=== PATIENT | male | born 1940 | race Caucasian/White ===

== ENCOUNTER 2022-01-27 10:52 | Emergency (ER) | payer MEDICARE, OTHER ==
[~2022-01-27] VITALS: Ht 172.7 cm; Wt 2.5 kg
--- NOTE | 2022-01-27 10:59 | NUR ---
REZA CEDENO C/O UPPER LIP SWELLING STARTED THIS MORNING."I JUST ATE BREAKFAST AND THIS HAPPENED". THE PATIENT IN ROOM AIR AND DENIES SOB. RESPIRATION REGULAR AND UNLABORED. ATTACHED TO THE MONITOR. WILL CONTINUE TO MONITOR THE PATIENT.
--- NOTE | 2022-01-27 11:00 | NUR ---
DR BARRON AT THE BEDSIDE
[2022-01-27] MEDS ORDERED: TAMS-12 PO (11:07)
[2022-01-27] MEDS ORDERED: MAGN400O6 PO (11:07)
[2022-01-27] MEDS ORDERED: FINA5TAB11 PO (11:07)
[2022-01-27] MEDS ORDERED: CARB1TAB21 PO (11:07)
[2022-01-27] MEDS ORDERED: BISA10SU11 RC (11:07)
[2022-01-27] MEDS ORDERED: ASPI-1420 PO (11:07)
[2022-01-27] MEDS ORDERED: ATOR40TA PO (11:07)
[2022-01-27] MEDS ORDERED: ALBU8.5H8 IH (11:07)
[2022-01-27] MEDS ORDERED: ACET-868 PO (11:07)
[2022-01-27] MEDS ORDERED: DOCU100T28 PO (11:07)
[2022-01-27] MEDS ORDERED: METO25TA4 PO (11:07)
[2022-01-27] MEDS ORDERED: DIVA125T32 PO (11:07)
[2022-01-27] MEDS ORDERED: NA P133E RC (11:07)
[2022-01-27] MEDS ORDERED: OXYB5TAB16 PO (11:07)
[2022-01-27] MEDS ORDERED: AMLO-212 PO (11:08)
[2022-01-27] MEDS ORDERED: diphenhydrAMINE HCL 50 MG/ML VIAL ONE (11:18)
[2022-01-27] MEDS ORDERED: methylPREDNISolone SOD SUCC 125 MG/2ML VIAL ONE (11:18)
[2022-01-27] MEDS ORDERED: EPINEPHRINE (1:1000) 1 MG/ML AMPUL ONE (11:18)
[2022-01-27] MEDS ORDERED: FAMOTIDINE/PF INJ 20 MG/2 ML VIAL IV ONE ×2 (11:19→11:30)
--- NOTE | 2022-01-27 11:24 | NUR ---
X RAY AT BEDSIDE
[2022-01-27] MEDS ORDERED: EPINEPHRINE (1:1000) MDV 30 MG/30ML VIAL SUBCUT ONE (11:30)
[2022-01-27] MEDS ORDERED: methylPREDNISolone SOD SUCC 125 MG/2ML VIAL IV ONE (11:30)
[2022-01-27] MEDS ORDERED: diphenhydrAMINE HCL 50 MG/ML VIAL IV ONE (11:30)
[2022-01-27 11:50] LABS: BASOPHILS # (AUTO) 0.1 K/uL (0.0-0.2); BASOPHILS % (AUTO) 0.8 % (0.0-2.0); EOSINOPHILS % (AUTO) 2.5 % (0.0-6.0); HEMATOCRIT 43 % (39-51); HEMOGLOBIN 14.1 g/dL (13.5-17.5); LYMPHOCYTES # (AUTO) 1.5 K/uL (0.8-4.8); LYMPHOCYTES % (AUTO) 17.2 % (20.0-44.0); MEAN CORPUSCULAR HGB CONC 33 g/dl (31.0-36.0); MEAN CORPUSCULAR VOLUME 91 fL (80-96); MONOCYTES # (AUTO) 0.6 K/uL (0.1-1.30); MONOCYTES % (AUTO) 7.6 % (2.0-12.0); NEUTROPHILS # (AUTO) 6.1 K/uL (1.8-8.9); NEUTROPHILS % (AUTO) 71.9 % (43.0-81.0); PLATELET COUNT (AUTO) 184 K/uL (150-450); RED BLOOD CELL COUNT(AUTO) 4.67 MIL/uL (4.5-6.0); WHITE BLOOD COUNT (AUTO) 8.5 K/uL (4.3-11.0)
[2022-01-27 12:00] LABS: CALCIUM, SERUM 8.8 mg/dL (8.5-10.1); CREATININE 1.3 mg/dL (0.6-1.3); POTASSIUM 3.9 mmol/L (3.5-5.1)
--- NOTE | 2022-01-27 12:34 | NUR ---
DR. MOSQUERA SPEAKING WITH DR. BARRNO.
[2022-01-27] MEDS ORDERED: FAMO-131 PO (13:01)
[2022-01-27] MEDS ORDERED: PRED20TA PO (13:01)
[2022-01-27] MEDS ORDERED: DIPH25CA83 PO (13:01)
--- NOTE | 2022-01-27 13:12 | NUR ---
[facility] CALLED FOR TRANSPORT ETA IS 60 MINS.
--- NOTE | 2022-01-27 14:34 | NUR ---
PICKED UP BY TRANSPORT IN STABLE CONDITION
--- NOTE | 2022-01-27 14:34 | NUR ---
REPORT GIVEN TO MAGNUS FOR RETA
[2022-01-27 14:38] VITALS: BP 141/75
== END 2022-01-27 14:38 | disposition home or self-care (01) ==
LOC: ER 10:57
DX: T78.3XXA Angioneurotic edema, initial encounter (principal); I10 Essential (primary) hypertension; E78.5 Hyperlipidemia, unspecified; J44.9 Chronic obstructive pulmonary disease, unspecified; N40.0 Benign prostatic hyperplasia without lower urinary tract symptoms; Z86.69 Personal history of other diseases of the nervous system and sense organs; Z87.438 Personal history of other diseases of male genital organs; Z88.0 Allergy status to penicillin; Z79.1 Long term (current) use of non-steroidal anti-inflammatories (NSAID); Z79.51 Long term (current) use of inhaled steroids; Z79.82 Long term (current) use of aspirin; Z79.899 Other long term (current) drug therapy
CPT/HCPCS: 36415; 71045; 80048; 85025; 93005; 96372; 96374; 96375; 99285; J0171; J1200; J2930; J3490

== ENCOUNTER 2022-12-31 07:34 | Inpatient (IN) | payer MEDICARE, OTHER ==
[~2022-12-31] VITALS: Ht 172.7 cm; Wt 55.8 kg
[~2022-12-31 07:34] MED LIST: ACET-868 PO; ALBU8.5H8 IH; AMLO-212 PO; ASPI-1420 PO; ATOR40TA PO; BISA10SU11 RC; CARB1TAB21 PO; DIPH25CA83 PO; DIVA125T32 PO; DOCU100T28 PO; FAMO-131 PO; FINA5TAB11 PO; MAGN400O6 PO; METO25TA4 PO; NA P133E RC; OXYB5TAB16 PO; PRED20TA PO; TAMS-12 PO
--- NOTE | 2022-12-31 07:40 | NUR ---
RECEVED PT 82 YRS MALE came by soheila from [facility] S/P FALL DOWN THIS MORNING AND HITYE HIS LT SIDE RT ARM AND RT LEG AND HIP AWAKE and alert respiration spont and easy
--- NOTE | 2022-12-31 07:45 | NUR ---
TO CT [facility]
--- NOTE | 2022-12-31 08:05 | NUR ---
BLOOD DROW BY LAB TACh at bed side
[2022-12-31 08:58] LABS: ALANINE AMINOTRANSFERASE 19 U/L (12-78); ALBUMIN 3.1 g/dL (3.4-5.0); ALKALINE PHOSPHATASE 74 U/L (46-116); ASPARTATE AMINOTRANSFERASE 19 U/L (15-37); BILIRUBIN,DIRECT 0.2 mg/dL (0.0-0.2); BILIRUBIN,TOTAL 0.5 mg/dL (0.2-1.0); CALCIUM, SERUM 8.8 mg/dL (8.5-10.1); CARBON DIOXIDE 26 mmol/L (21-32); CHLORIDE 105 mmol/L (98-107); CREATININE 1.5 mg/dL (0.6-1.3); GLUCOSE 139 mg/dL (74-106); POTASSIUM 3.9 mmol/L (3.5-5.1); SODIUM SERUM 139 mmol/L (136-145); TOTAL PROTEIN, SERUM 6.7 g/dL (6.4-8.2); UREA NITROGEN, BLOOD 16 mg/dL (7-18)
--- NOTE | 2022-12-31 09:08 | NUR ---
resting and asleepy o2 sat 88-90% place pt on o2 2l/nc
[2022-12-31 09:53] LABS: BASOPHILS % (AUTO) 0.1 % (0.0-2.0); EOSINOPHILS % (AUTO) 0.3 % (0.0-6.0); HEMATOCRIT 42 % (39-51); HEMOGLOBIN 13.2 g/dL (13.5-17.5); LYMPHOCYTES # (AUTO) 0.8 K/uL (0.8-4.8); LYMPHOCYTES % (AUTO) 6.2 % (20.0-44.0); MEAN CORPUSCULAR HGB CONC 32 g/dl (31.0-36.0); MEAN CORPUSCULAR VOLUME 94 fL (80-96); MONOCYTES # (AUTO) 0.8 K/uL (0.1-1.30); MONOCYTES % (AUTO) 6.4 % (2.0-12.0); NEUTROPHILS # (AUTO) 11.4 K/uL (1.8-8.9); PLATELET COUNT (AUTO) 180 K/uL (150-450); RED BLOOD CELL COUNT(AUTO) 4.44 MIL/uL (4.5-6.0); WHITE BLOOD COUNT (AUTO) 13.1 K/uL (4.3-11.0)
[2022-12-31] MEDS ORDERED: ACETAMINOPHEN ES 500 MG TABLET ONE (10:14)
--- NOTE | 2022-12-31 10:17 | NUR ---
DEPARTMENT STORE MANAGER AT BEDSIDE FOR XRAY
[2022-12-31] MEDS ORDERED: ACETAMINOPHEN ES 500 MG TABLET PO ONE (10:30)
[2022-12-31] MEDS ORDERED: IV NS 0.9% 1,000 ML BAG IV ONE (10:30)
--- NOTE | 2022-12-31 10:44 | NUR ---
COVID SWAB COLLECTED AND SENT TO LAB
[2022-12-31] MEDS ORDERED: LEVO50TA8 PO (10:45)
[2022-12-31] MEDS ORDERED: ASCO500C17 PO (10:45)
--- NOTE | 2022-12-31 11:17 | NUR ---
MOVE SHEET SUBMITTED.
[2022-12-31] MEDS ORDERED: ONDANSETRON HCL/PF 4 MG/2 ML VIAL IVP ONE (11:30)
[2022-12-31] MEDS ORDERED: MORPHINE SULFATE INJ 2 MG/ML DISP.SYRIN IV ONE (11:30)
--- NOTE | 2022-12-31 11:44 | NUR ---
CALLED [facility] [phone] DR. OROZCO PAGED.
[2022-12-31] MEDS ORDERED: ONDANSETRON HCL/PF 4 MG/2 ML VIAL ONE (12:18)
[2022-12-31] MEDS ORDERED: MORPHINE SULFATE INJ 4 MG/ML DISP.SYRIN ONE (12:18)
--- NOTE | 2022-12-31 12:32 | NUR ---
WATING FOR ROOM
--- NOTE | 2022-12-31 13:12 | NUR ---
GOT BED 304 ADMITTINED INFORMED.
--- NOTE | 2022-12-31 13:12 | NUR ---
ROOM ASSIGNED. 304.1 ADMITTING AWARE.
--- NOTE | 2022-12-31 13:14 | NUR ---
EPIC PAGED, AWAITING HOSPITALIST CALL BACK.
--- NOTE | 2022-12-31 13:43 | NUR ---
PT TAKEN TO RADIOLOGY
--- NOTE | 2022-12-31 13:58 | NUR ---
ROQUE CHAPPELL, WILL CALL BACK FOR REPORT
--- NOTE | 2022-12-31 14:30 | NUR ---
PT REPORT GIVEN TO ROQUE CHAPPELL
--- NOTE | 2022-12-31 16:04 | NUR ---
PT TRANSFERRED TO [facility]IA [facility]. WARM HANDOFF GIVEN TO RN ASSIGNED.
[2022-12-31] MEDS: MORPHINE SULFATE INJ 2 MG/ML DISP.SYRIN IV PRN ×2 (18:29→22:36)
[2022-12-31] MEDS ORDERED: BISACODYL SUPP (10 MG) 10 MG/SUPP.RECT SUPP.RECT RC PRN (19:00)
[2022-12-31] MEDS ORDERED: MAG HYDROX/AL HYDROX/SIMETH 30 ML UDC PO PRN (19:00)
[2022-12-31] MEDS ORDERED: Z GUARD REMEDY 4 OZ OINT TP PRN (19:00)
[2022-12-31] MEDS ORDERED: ONDANSETRON HCL/PF 4 MG/2 ML VIAL IVP PRN (19:00)
[2022-12-31] MEDS ORDERED: MAGNESIUM HYDROXIDE 30 ML UDC PO PRN (19:00)
[2022-12-31] MEDS ORDERED: ZOLPIDEM TARTRATE 5 MG TABLET PO PRN (19:00)
[2022-12-31] MEDS ORDERED: ACETAMINOPHEN 325 MG TABLET PO PRN ×2 (19:00)
[2022-12-31] MEDS: ALBUTEROL FS 2.5 MG/3 ML VIAL.NEB NEB SCH ×2 (19:30→21:06)
--- NOTE | 2022-12-31 19:30 | NUR ---
MS RN OPENING NOTE RECEIVED PATIENT IN BED; AWAKE, ALERT AND ORIENTED X 4. ON O2 INHALATION@ 2 LPM VIA NASAL CANNULA; TOLERATING WELL. BREATHING EVEN AND NONLABORED. ABLE TO MAKE NEEDS KNOWN. WITH IV ACCESS ON RIGHT FOREARM 18g; PATENT, INTACT AND SALINE LOCKED. SAFETY PRECAUTIONS IMPLEMENTED: CALL LIGHT AND TABLE WITHIN REACH, SIDE RAILS UP X 3, BED IN LOWEST LOCKED POSITION. WILL CONTINUE PLAN OF CARE.
--- NOTE | 2022-12-31 19:40 | NUR ---
FRUIT BAR MAKER NOTES RECEIVED PATIENT FROM ER VIA [facility] WITH C/O OF S/P GROUND FALL AND WITH DX RIGHT HIP FRACTURE , OTHER DX OF DEMENTIA , HTN , COPD AND BPH , ALERT AND ORIENTED X 4 AND ABLE TO MAKE NEEDS KNOWN , BODY ASSESSMENT DONE PER PROTOCOL AND PATIENT REFUSED TO DO THE WHOLE BODY CHECK AND KEPT DRY AND CLEAN , ABLE TO TAKE SOME PHOTOS AND PATIENT DOESN'T WANT TO CONTINUE , NO SOB OR DISTRESS NOTED , C/O OF PAIN AND DISCOMFORT ON THE RIGHT HIP LIKE 08/30 AND GIVEN WITH MORPHINE SO4 2MG IV AND WITH HELP , IV ACCESS ON THE RIGHT FOREARM G 18 AND SL , NWB ON RIGHT LOWER EXT, SKIN WITH MULTIPLE RASHES ON THE ABDOMEN AND SCRATCHES ON BOTH LOWER EXTREMITIES , WITH ORDER FOR CLEAR FOR SURGERY OF RIGHT HEMIARTHROPLASTY , NEEDS CONSENT AND ENDORSED TO NEXT SHIFT , ALL BELONGINGS WERE ACCOUNTED AND PATIENT WAS PUT IN A COMFORTABLE POSITION , V/S TAKEN AND RECORDED BP 152/75, TEMP 98.3, RR 18 , P 82 OS SAT 97% WITH 2 L, ENDORSED TO NEXT SHIFT
[2022-12-31 19:52] VITALS: BP 152/78
[2022-12-31 20:00] VITALS: BP 166/97
--- NOTE | 2022-12-31 20:30 | NUR ---
RN NOTE' BP RECHECKED - 152/85 MM HG.
[2022-12-31] MEDS: ENOXAPARIN SODIUM 30 MG/0.3 ML DISP.SYRIN SQ SCH (20:52)
[2022-12-31] MEDS: DIVALPROEX SODIUM 125 MG TABLET.DR PO SCH (20:53)
[2022-12-31] MEDS: ATORVASTATIN 40 MG TABLET PO SCH (21:34)
[2022-12-31] MEDS: TAMSULOSIN 0.4 MG CAP.SR.24H PO SCH (21:34)
[2022-12-31] MEDS: AMLODIPINE BESYLATE 5 MG TABLET PO SCH (21:40)
--- NOTE | 2022-12-31 22:36 | NUR ---
RN NOTE PATIENT COMPLAINED OF RIGHT HIP PAIN 8/10 PAIN SCALE. PRN MORPHINE INJ 2 MG GIVEN IVP ORDERED. KEPT COMFORTABLE IN BED. WILL CONTINUE TO MONITOR AND REASSESS PATIENT.
[2023-01-01] MEDS: ALBUTEROL FS 2.5 MG/3 ML VIAL.NEB NEB SCH ×4 (01:30→19:30)
[2023-01-01] MEDS: MORPHINE SULFATE INJ 2 MG/ML DISP.SYRIN IV PRN ×5 (02:14→23:25)
--- NOTE | 2023-01-01 02:14 | NUR ---
RN NOTE PATIENT COMPLAINED OF RIGHT HIP PAIN WITH PAIN SCALE OF 8/10. MORPHINE INJ 2 MG PRN GIVEN IVP ORDERED. KEPT COMFORTABLE IN BED. WILL CONTINUE TO MONITOR AND REASSESS PATIENT.
[2023-01-01 05:45] LABS: BASOPHILS % (AUTO) 0.4 % (0.0-2.0); EOSINOPHILS % (AUTO) 5.7 % (0.0-6.0); HEMATOCRIT 44 % (39-51); LYMPHOCYTES # (AUTO) 0.9 K/uL (0.8-4.8); LYMPHOCYTES % (AUTO) 9.1 % (20.0-44.0); MEAN CORPUSCULAR HGB CONC 32 g/dl (31.0-36.0); MEAN CORPUSCULAR VOLUME 94 fL (80-96); MONOCYTES # (AUTO) 0.8 K/uL (0.1-1.30); MONOCYTES % (AUTO) 7.6 % (2.0-12.0); NEUTROPHILS # (AUTO) 7.9 K/uL (1.8-8.9); NEUTROPHILS % (AUTO) 77.2 % (43.0-81.0); PLATELET COUNT (AUTO) 169 K/uL (150-450); RED BLOOD CELL COUNT(AUTO) 4.68 MIL/uL (4.5-6.0); WHITE BLOOD COUNT (AUTO) 10.2 K/uL (4.3-11.0)
[2023-01-01 06:00] LABS: CALCIUM, SERUM 8.6 mg/dL (8.5-10.1); CREATININE 1.3 mg/dL (0.6-1.3); MAGNESIUM 2.1 mg/dL (1.8-2.4); PHOSPHORUS 3.4 mg/dL (2.5-4.9); POTASSIUM 4.1 mmol/L (3.5-5.1)
--- NOTE | 2023-01-01 06:08 | NUR ---
RN NOTE CALLED SHARON TROTTER ([phone]) TO GET CONSENT FOR SURGERY. LEFT VOICEMAIL; STILL AWAITING FOR CALLBACK. ENDORSED TO TOAN NEVAREZ FOR FOLLOW UP.
--- NOTE | 2023-01-01 07:10 | NUR ---
MS RN CLOSING NOTE RECEIVED PATIENT IN BED; AWAKE, ALERT AND ORIENTED X 2. STILL ON O2 INHALATION@ 2 LPM VIA NASAL CANNULA; WELL TOLERATED. BREATHING EQUALLY AND UNLABORED. ALL DUE MEDS GIVEN ORDERED. WITH IV ACCESS ON RIGHT FOREARM 18g; PATENT, INTACT AND SALINE LOCKED. SAFETY PRECAUTIONS MAINTAINED: CALL LIGHT AND TABLE WITHIN REACH, SIDE RAILS UP X 3, BED IN LOWEST LOCKED POSITION. ENDORSED TO MORNING SHIFT FOR RETA.
--- NOTE | 2023-01-01 07:47 | NUR ---
RN OPENING NOTE RECEIVED PATIENT IN BED, AO X 2. ABLE TO RESPONDS ALL STIMULI. RESPIRATORY EVEN AND UNLABORED ON OXYGEN AT 2Ls VIA NC. IN NO ACUTE DISTRESS OBSERVED. SKIN IS WARM TO TOUCH, KEEP CLEAN/DRY. KEPT ELEVATED HOB FOR ASPIRATION PRECAUTION/ENSURE AIRWAY, ALSO LOWEST BED POSITIONED. BED ALARM IS ON AT ALL THE TIME FOR SAFETY. CALL LIGHT WITHIN REACH, WILL CONTINUE TO MONITOR.
[2023-01-01 08:00] VITALS: BP 162/96
[2023-01-01] MEDS: METOPROLOL SUCCINATE 25 MG TAB.SR.24H PO SCH ×2 (08:46→16:44)
[2023-01-01] MEDS: FINASTERIDE (5 MG) 5 MG TABLET PO SCH (08:46)
[2023-01-01] MEDS: DIVALPROEX SODIUM 125 MG TABLET.DR PO SCH ×2 (08:47→21:48)
[2023-01-01] MEDS: LEVOTHYROXINE SODIUM 50 MCG TABLET PO SCH (08:47)
[2023-01-01] MEDS ORDERED: ANESTHESIA TRAY IN PYXIS 1 EA TRAY MC ONE (13:16)
--- NOTE | 2023-01-01 13:49 | NUR ---
PATIENT REFUSED TX. AND SAID IS ALERT ON 2 L NC. SAT IN 90% Addendum: 01/01/23 at 1350 by HARLAN LANCASTER RT Amended: Links added.
[2023-01-01] MEDS: ENSURE ENLIVE 237 ML LIQUID (VANILLA) PO SCH ×2 (14:50→16:48)
[2023-01-01 16:00] VITALS: BP 145/79
--- NOTE | 2023-01-01 17:27 | NUR ---
RN CLOSING NOTE PATIENT RESTING IN BED. IN NO ACUTE DISTRESS OBSERVED. RESPIRATORY EVEN AND UNLABORED ON OXYGEN AT 2Ls VIA NC. IN NO RESPIRATORY DISTRESS OBSERVED. SKIN IS WARM TO TOUCH KEEP CLEAN/DRY. PATIENT UNDERSTANDING THE TOMORROW PROCEDURE AND SIGNED ON CONSENT FOR MISA-ARTHROPLASTY. KEPT ELEVATED HOB FOR ENSURE AIRWAY/ASPIRATION PRECAUTION, AND LOWEST BED POSITION. BED ALARM IS ON AT ALL THE TIME FOR SAFETY. CALL LIGHT WITHIN REACH, WILL ENDORSE UM SPECIALIST.
[2023-01-01] MEDS: ENOXAPARIN SODIUM 30 MG/0.3 ML DISP.SYRIN SQ SCH (19:30)
--- NOTE | 2023-01-01 19:30 | NUR ---
RN OPENING NOTE RECEIVED PATIENT IN BED; AWAKE, ALERT AND ORIENTED X 2. ON O2 INHALATION @ 2 LPM VIA NASAL CANNULA; TOLERATING WELL. BREATHING EVEN AND NONLABORED. WITH IV ACCESS ON RIGHT FOREARM 18g; INTACT, PATENT AND SALINE LOCKED. ABLE TO MAKE NEEDS KNOWN. SAFETY PRECAUTIONS IMPLEMENTED: CALL LIGHT AND TABLE WITHIN REACH, SIDE RAILS UP X 3, BED IN LOWEST LOCKED POSITION. WILL CONTINUE PLAN OF CARE.
--- NOTE | 2023-01-01 19:48 | NUR ---
PT REFUSED NEB TX. PT IS ALERT, SPO2 95% ON 2L NC. NO SOB OR RESP DISTRESS NOTED.
[2023-01-01 20:00] VITALS: BP 166/98
[2023-01-01] MEDS: TAMSULOSIN 0.4 MG CAP.SR.24H PO SCH (21:48)
[2023-01-01] MEDS: ATORVASTATIN 40 MG TABLET PO SCH (21:49)
[2023-01-01] MEDS: AMLODIPINE BESYLATE 5 MG TABLET PO SCH (21:52)
[2023-01-01 22:00] VITALS: BP 166/98
[2023-01-02] MEDS: ALBUTEROL FS 2.5 MG/3 ML VIAL.NEB NEB SCH ×4 (01:30→19:47)
[2023-01-02 06:11] LABS: BASOPHILS % (AUTO) 0.2 % (0.0-2.0); EOSINOPHILS % (AUTO) 4.3 % (0.0-6.0); HEMATOCRIT 43 % (39-51); HEMOGLOBIN 13.8 g/dL (13.5-17.5); LYMPHOCYTES # (AUTO) 0.9 K/uL (0.8-4.8); LYMPHOCYTES % (AUTO) 8.7 % (20.0-44.0); MEAN CORPUSCULAR HGB CONC 32 g/dl (31.0-36.0); MEAN CORPUSCULAR VOLUME 93 fL (80-96); MONOCYTES # (AUTO) 1.1 K/uL (0.1-1.30); MONOCYTES % (AUTO) 10.6 % (2.0-12.0); NEUTROPHILS # (AUTO) 8.3 K/uL (1.8-8.9); NEUTROPHILS % (AUTO) 76.2 % (43.0-81.0); PLATELET COUNT (AUTO) 167 K/uL (150-450); RED BLOOD CELL COUNT(AUTO) 4.59 MIL/uL (4.5-6.0); WHITE BLOOD COUNT (AUTO) 10.8 K/uL (4.3-11.0)
[2023-01-02 06:28] LABS: CALCIUM, SERUM 8.9 mg/dL (8.5-10.1); CREATININE 1.2 mg/dL (0.6-1.3); MAGNESIUM 2.2 mg/dL (1.8-2.4); PHOSPHORUS 3.1 mg/dL (2.5-4.9); POTASSIUM 4.4 mmol/L (3.5-5.1)
--- NOTE | 2023-01-02 06:55 | NUR ---
RN CLOSING NOTE PATIENT IN BED; AWAKE, A/O X 2. STILL ON O2 INHALATION @ 2 LPM VIA NASAL CANNULA; WELL TOLERATED. BREATHING EQUAL AND UNLABORED. WITH IV ACCESS ON RIGHT FA 18g; INTACT, PATENT AND SALINE LOCKED. ALL DUE MEDS GIVEN ORDERED. FOR RIGHT HEMIARTHROPLASTY TODAY @ 0900. SAFETY PRECAUTIONS MAINTAINED: CALL LIGHT AND TABLE WITHIN REACH, SIDE RAILS UP X 3, BED IN LOWEST LOCKED POSITION. ENDORSED TO INCOMING SHIFT FOR RETA.
--- NOTE | 2023-01-02 07:50 | NUR ---
RN OPENING NOTE RECEIVED PATIENT IN BED, A & O X 2. ABLE TO RESPOND TO ALL STIMULI. RESPIRATIONS ARE EVEN AND UNLABORED ON OXYGEN AT 3 LPM VIA NC. IN NO ACUTE DISTRESS OBSERVED. SKIN IS WARM TO TOUCH, KEEP CLEAN/DRY. KEPT ELEVATED HOB FOR ASPIRATION PRECAUTION/ENSURE AIRWAY, ALSO LOWEST BED POSITIONED. BED ALARM IS ON AT ALL THE TIME FOR SAFETY. CALL LIGHT WITHIN REACH, WILL CONTINUE TO MONITOR AND CARE FOR PATIENT PER HOSPITALIST AND SURGEON'S POC.
[2023-01-02 08:00] VITALS: BP 158/87
[2023-01-02] MEDS: DIVALPROEX SODIUM 125 MG TABLET.DR PO SCH ×2 (09:31→21:13)
[2023-01-02] MEDS: FINASTERIDE (5 MG) 5 MG TABLET PO SCH (09:31)
[2023-01-02] MEDS: LEVOTHYROXINE SODIUM 50 MCG TABLET PO SCH (09:31)
[2023-01-02] MEDS: METOPROLOL SUCCINATE 25 MG TAB.SR.24H PO SCH ×2 (09:31→19:15)
--- NOTE | 2023-01-02 10:15 | NUR ---
MS RN PATIENT DEPARTS [facility] FOR SURGERY NOTE Patient comfortable without any signs of distress, diapered, alert and oriented x 3 with some confusion and forgetfulness. POC BG = 149mg/dL. Patient has # 18 gauge PIV catheter to right forearm, patent, flushed, and saline locked. Patient had hypertension before receiving his daily anti-hypertensive medication. Patient maintained NPO status except to take morning scheduled medications with 30 mLs of water at 9:00 AM dose time. Report gibven on phone to receiving OR nurse. Patient on oxygen via nasal cannula at 3 LPM. Patient departed [facility] via his bed, accompanied by transporter OR staff, Tawnya at 10:15 AM. All consents were signed, witnessed, dated, and timed. OR checklist completed.
[2023-01-02] MEDS ORDERED: BUPIVACAINE 0.5 % PF 150 MG/30 ML VIAL ONE (10:16)
[2023-01-02] MEDS ORDERED: POLYMYXIN B SULFATE 500,000 UNITS ONE (10:16)
[2023-01-02] MEDS ORDERED: TRANEXAMIC ACID 1,000 MG/10 ML VIAL ONE (10:38)
[2023-01-02] MEDS ORDERED: CLINDAMYCIN IV RTU IN D5W 50 ML ONE (10:39)
[2023-01-02] MEDS ORDERED: HYDROMORPHONE INJ 2 MG/ML DISP.SYRIN ONE (10:41)
[2023-01-02] MEDS ORDERED: KETAMINE HCL (500MG/10ML) 50 MG/ML VIAL ONE (10:41)
[2023-01-02] MEDS ORDERED: MEPERIDINE25 MG SYR 25 MG/ML VIAL ONE (12:10)
[2023-01-02] MEDS: ENSURE ENLIVE 237 ML LIQUID (VANILLA) PO SCH ×2 (13:00→19:16)
[2023-01-02] MEDS ORDERED: CEFAZOLIN 1 GM VIAL IM SCH (13:00)
--- NOTE | 2023-01-02 13:05 | NUR ---
RETURNING FROM SURGERY TO [facility] UN[facility] NOTE Patient returned via bed to room 304 from status post surgery repair of right hip at 12:56 PM. Right hip dressing dry, clean, intact. Patient has positive pedal pulses, feet [id number], and able to wiggle toes and plantar flex feet. Patient quite lethargic, confused, seems to have forgotten he had surgery. Patient has #18 gauge PIV catheter saline locked to right forearm and IV NS infusing with gravity into left wrist # 22 gauge PIV catheter. Vital signs stable. Afebrile. Lung sounds clear to auscultation. Hypoactive bowel sounds. Safety protocols in place: bed in lowest position; bed brakes on locked position; three bed side rails up; bed alarm on; and call briggs/light within patient's reach. Will continue to care for and monitor patient per hospitalist's and surgeon's POC.
[2023-01-02] MEDS: MORPHINE SULFATE INJ 2 MG/ML DISP.SYRIN IV PRN ×2 (14:09→23:13)
[2023-01-02 16:00] VITALS: BP 150/89
--- NOTE | 2023-01-02 19:00 | NUR ---
RN CLOSING NOTE PATIENT RESTING IN BED. IN NO ACUTE DISTRESS. RESPIRATions are EVEN AND UNLABORED ON OXYGEN AT 3 LPM VIA NC. NO RESPIRATORY DISTRESS OBSERVED. SKIN IS WARM TO TOUCH, CLEAN, AND DRY. KEPT ELEVATED HOB FOR ENSURE AIRWAY/ASPIRATION PRECAUTION, AND LOWEST BED POSITION. BED ALARM IS ON AT ALL THE TIME FOR SAFETY. CALL LIGHT WITHIN REACH, WILL ENDORSE TO CAMP RECREATION SPECIALIST NURSE FOR RETA.
[2023-01-02] MEDS: ENOXAPARIN SODIUM 30 MG/0.3 ML DISP.SYRIN SQ SCH (19:30)
--- NOTE | 2023-01-02 19:30 | NUR ---
MS RN OPENING NOTE RECEIVED PT AWAKE IN BED. A/O X2 AND ABLE TO MAKE NEEDS KNOWN. PT ON O2 @ 3LPM VIA NC, TOLERATING WELL. NO SOB OR S/S OF RESPIRATORY DISTRESS. BREATHING EVEN AND UNLABORED. IV ACCESS L WRIST 22G, INTACT AND PATENT. R HIP DRESSING C/D/I. SAFETY PRECAUTIONS IN PLACE. BED IN LOWEST LOCKED POSITION, HOB ELEVATED, SIDE RAILS UP X3, AND CALL LIGHT AND TABLE WITHIN REACH. ALL NEEDS MET AT THIS TIME.
[2023-01-02 20:00] VITALS: BP 144/85
[2023-01-02] MEDS: CLINDAMYCIN 900 MG in IV D5W 50 ML IV SCH (20:50)
[2023-01-02] MEDS: TAMSULOSIN 0.4 MG CAP.SR.24H PO SCH (21:13)
[2023-01-02] MEDS: ATORVASTATIN 40 MG TABLET PO SCH (21:13)
[2023-01-02] MEDS: AMLODIPINE BESYLATE 5 MG TABLET PO SCH (21:14)
--- NOTE | 2023-01-02 23:32 | NUR ---
RN NOTE PT COMPLAINING OF PAIN 07/31 OF R HIP. ADMINISTERED MORPHINE 2 MG FOR SEVERE PAIN ORDERED. MADE COMFORTABLE IN BED. ALL NEEDS MET AT THIS TIME.
[2023-01-03] MEDS: ALBUTEROL FS 2.5 MG/3 ML VIAL.NEB NEB SCH ×4 (01:42→20:05)
--- NOTE | 2023-01-03 06:48 | NUR ---
MS RN CLOSING NOTE PT AWAKE IN BED. A/O X2 WITH EPISODES OF FORGETFULNESS AND ABLE TO MAKE NEEDS KNOWN. PT ON O2 @ 3LPM VIA NC, TOLERATING WELL. NO SOB OR S/S OF RESPIRATORY DISTRESS. BREATHING EVEN AND UNLABORED. IV ACCESS L WRIST 22G, INTACT AND PATENT. R HIP DRESSING C/D/I. PT REFUSED SKIN ASSESSMENT AND PICTURES AT THIS TIME. EXPLAINED IMPORTANCE OF DOCUMENTATION AND STILL REFUSED. ALL DUE MEDS GIVEN ORDERED. SAFETY PRECAUTIONS IN PLACE AT ALL TIMES. BED IN LOWEST LOCKED POSITION, HOB ELEVATED, SIDE RAILS UP X3, AND CALL LIGHT AND TABLE WITHIN REACH. ALL NEEDS MET AT THIS TIME AND WILL ENDORSE TO ONCOMING NURSE FOR RETA.
--- NOTE | 2023-01-03 07:18 | NUR ---
MS RN OPENING NOTE RECEIVED PT AWAKE IN BED. A/O X2 AND ABLE TO MAKE NEEDS KNOWN. PT ON O2 @ 3LPM VIA NC, TOLERATING WELL. NO SOB OR S/S OF RESPIRATORY DISTRESS. BREATHING EVEN AND UNLABORED. IV ACCESS L WRIST 18G, INTACT AND PATENT. R HIP DRESSING C/D/I. WITH ABDUCTOR PILLOW. SAFETY PRECAUTIONS IN PLACE. BED IN LOWEST LOCKED POSITION, HOB ELEVATED, SIDE RAILS UP X3, AND CALL LIGHT AND TABLE WITHIN REACH. WILL CONTINUE WITH PLAN OF CARE.
[2023-01-03 08:00] VITALS: BP 157/90
[2023-01-03 09:14] LABS: BASOPHILS % (AUTO) 0.2 % (0.0-2.0); EOSINOPHILS % (AUTO) 0.3 % (0.0-6.0); HEMATOCRIT 40 % (39-51); HEMOGLOBIN 12.8 g/dL (13.5-17.5); LYMPHOCYTES # (AUTO) 0.9 K/uL (0.8-4.8); LYMPHOCYTES % (AUTO) 7.8 % (20.0-44.0); MEAN CORPUSCULAR HGB CONC 32 g/dl (31.0-36.0); MEAN CORPUSCULAR VOLUME 93 fL (80-96); MONOCYTES # (AUTO) 1.5 K/uL (0.1-1.30); MONOCYTES % (AUTO) 12.9 % (2.0-12.0); NEUTROPHILS # (AUTO) 9.4 K/uL (1.8-8.9); NEUTROPHILS % (AUTO) 78.8 % (43.0-81.0); PLATELET COUNT (AUTO) 178 K/uL (150-450); RED BLOOD CELL COUNT(AUTO) 4.28 MIL/uL (4.5-6.0)
[2023-01-03 09:37] LABS: BILIRUBIN,TOTAL 0.6 mg/dL (0.2-1.0); CALCIUM, SERUM 8.9 mg/dL (8.5-10.1); CREATININE 1.1 mg/dL (0.6-1.3); POTASSIUM 3.8 mmol/L (3.5-5.1); TOTAL PROTEIN, SERUM 6.9 g/dL (6.4-8.2)
--- NOTE | 2023-01-03 09:43 | NUR ---
WOUND CARE CONSULT: PT NOTED TO SCREAM AT TIMES. PT GIVEN MUCH REASSURANCE BEFORE ATTEMPTING TO TURN FOR FULL SKIN ASSESSMENT. PT NOTED TO HAVE SCRATCH TARIQ/EXCORIATED AREAS TO RT LOWER LEG AND SOME SCARRING TO LOWER BUTTOCKS, PRESENT ON ADMISSION. RECOMMENDATIONS MADE FOR SKIN PROTECTION. DISCUSSED WITH NURSING STAFF. PT IS INCONTINENT. MD IN AGREEMENT WITH PLAN OF CARE. PT IS ON [place] ISOFLEX LOW AIRLOSS BED.
[2023-01-03] MEDS: CLINDAMYCIN 900 MG in IV D5W 50 ML IV SCH (09:45)
[2023-01-03] MEDS: DIVALPROEX SODIUM 125 MG TABLET.DR PO SCH ×2 (09:46→20:57)
[2023-01-03] MEDS: LEVOTHYROXINE SODIUM 50 MCG TABLET PO SCH (09:46)
[2023-01-03] MEDS: FINASTERIDE (5 MG) 5 MG TABLET PO SCH (09:46)
[2023-01-03] MEDS: MORPHINE SULFATE INJ 2 MG/ML DISP.SYRIN IV PRN ×3 (09:47→20:57)
[2023-01-03] MEDS: METOPROLOL SUCCINATE 25 MG TAB.SR.24H PO SCH ×2 (09:47→18:00)
[2023-01-03] MEDS: ENOXAPARIN SODIUM 30 MG/0.3 ML DISP.SYRIN SQ SCH (09:48)
--- NOTE | 2023-01-03 09:50 | NUR ---
MS RN NOTE PAIN MEDICATION GIVEN REQUESTED BY PATIENT FOR PAIN IN THE RIGHT HIP. HEALTH TEACHING DONE REGARDING PAIN MANAGEMENT. IN STABLE CONDITION.
[2023-01-03] MEDS: ENSURE ENLIVE 237 ML LIQUID (VANILLA) PO SCH ×2 (13:44→18:00)
--- NOTE | 2023-01-03 14:00 | NUR ---
MS RN NOTE PT DONE, ONLY ABLE TO SIT ON THE EDGE OF THE BED. IN STABLE CONDITION.
--- NOTE | 2023-01-03 14:35 | NUR ---
MS RN NOTE PAIN MEDICATION GIVEN REQUESTED BY PATIENT FOR PAIN IN THE RIGHT HIP. HEALTH TEACHING DONE REGARDING DISEASE PROCESS AND MANAGEMENT. IN STABLE CONDITION.
[2023-01-03 16:00] VITALS: BP 135/73
--- NOTE | 2023-01-03 19:00 | NUR ---
MS RN CLOSING NOTE PT AWAKE IN BED. A/O X2 AND ABLE TO MAKE NEEDS KNOWN. PT ON O2 @ 3LPM VIA NC, TOLERATING WELL. NO SOB OR S/S OF RESPIRATORY DISTRESS. BREATHING EVEN AND UNLABORED. IV ACCESS L WRIST 18G, INTACT AND PATENT. R HIP DRESSING C/D/I. WITH ABDUCTOR PILLOW. SAFETY PRECAUTIONS IN PLACE. BED IN LOWEST LOCKED POSITION, HOB ELEVATED, SIDE RAILS UP X3, AND CALL LIGHT AND TABLE WITHIN REACH. ENDORSED TO NEXT SHIFT FOR CONTINUITY OF CARE.
--- NOTE | 2023-01-03 19:30 | NUR ---
MS RN OPENING NOTE RECEIVED PT AWAKE IN BED. A/O X2 AND ABLE TO MAKE NEEDS KNOWN. PT ON O2 @ 3LPM VIA NC, TOLERATING WELL. NO SOB OR S/S OF RESPIRATORY DISTRESS. BREATHING EVEN AND UNLABORED. IV ACCESS L WRIST 18G, INTACT AND PATENT. R HIP DRESSING C/D/I. SAFETY PRECAUTIONS IN PLACE. BED IN LOWEST LOCKED POSITION, HOB ELEVATED, SIDE RAILS UP X3, AND CALL LIGHT AND TABLE WITHIN REACH. ALL NEEDS MET AT THIS TIME.
[2023-01-03 20:00] VITALS: BP 180/80
--- NOTE | 2023-01-03 20:58 | NUR ---
RN NOTE PT COMPLAINED OF PAIN 07/31 OF R HIP. ADMINISTERED MORPHINE 2 MG FOR SEVERE PAIN ORDERED. MADE COMFORTABLE IN BED. ALL NEEDS MET AT THIS TIME.
[2023-01-03] MEDS: AMLODIPINE BESYLATE 5 MG TABLET PO SCH (21:02)
[2023-01-03] MEDS: TAMSULOSIN 0.4 MG CAP.SR.24H PO SCH (21:02)
[2023-01-03] MEDS: ATORVASTATIN 40 MG TABLET PO SCH (21:02)
[2023-01-04] MEDS: ALBUTEROL FS 2.5 MG/3 ML VIAL.NEB NEB SCH ×4 (02:12→19:52)
--- NOTE | 2023-01-04 06:34 | NUR ---
MS RN CLOSING NOTE PT AWAKE IN BED. A/O X2 AND ABLE TO MAKE NEEDS KNOWN. PT ON O2 @ 3LPM VIA NC, TOLERATING WELL. NO SOB OR S/S OF RESPIRATORY DISTRESS. BREATHING EVEN AND UNLABORED. IV ACCESS L WRIST 22G, INTACT AND PATENT. R HIP DRESSING C/D/I. CONDOM CATHETER PLACED. ALL DUE MEDS GIVEN ORDERED. SAFETY PRECAUTIONS IN PLACE AT ALL TIMES. BED IN LOWEST LOCKED POSITION, HOB ELEVATED, SIDE RAILS UP X3, AND CALL LIGHT AND TABLE WITHIN REACH. ALL NEEDS MET AT THIS TIME AND WILL ENDORSE TO ONCOMING NURSE FOR RETA.
--- NOTE | 2023-01-04 07:26 | NUR ---
MS RN OPENING NOTE RECEIVED PT AWAKE AND RESTING IN BED. PT IS A/O X2, REORIENTED PT NEEDED. PT IS ON O2 AT 3L/MIN, TOLERATING WELL. NO SOB NOTED. NOT IN ANY SIGN OF RESPIRATORY DISTRESS. IV ACCESS ON LEFT WRIST G#18, INTACT AND PATENT. PT ON S/P RIGHT HIP MISA ARTHROPLASTY, DRESSING C/D/I WITH NOT ACTIVE BLEEDING OR DRAINAGE NOTED. SAFETY MEASURES IN PLACE: BED IN LOWEST AND LOCKED POSITION, SIDE RAILS UPX2, BED ALARM ON, AND CALL LIGHT WITHIN REACH. WILL CONTINUE TO MONITOR PT.
[2023-01-04 08:00] VITALS: BP 153/86
[2023-01-04] MEDS ORDERED: ENOX30DI SQ (08:51)
[2023-01-04] MEDS ORDERED: HYDR-3972 PO (08:51)
[2023-01-04] MEDS: LEVOTHYROXINE SODIUM 50 MCG TABLET PO SCH (08:55)
[2023-01-04] MEDS: FINASTERIDE (5 MG) 5 MG TABLET PO SCH (08:55)
[2023-01-04] MEDS: METOPROLOL SUCCINATE 25 MG TAB.SR.24H PO SCH ×2 (08:56→17:11)
[2023-01-04] MEDS: DIVALPROEX SODIUM 125 MG TABLET.DR PO SCH (08:56)
[2023-01-04] MEDS: MORPHINE SULFATE INJ 2 MG/ML DISP.SYRIN IV PRN (09:20)
--- NOTE | 2023-01-04 09:22 | NUR ---
RN NOTE PT C/O RIGHT HIP PAIN WITH PAIN SCALE LEVEL OF 8/10. MORPHINE 2MG IVP ADMINISTERED ORDERED Q2HRS PRN FOR SEVERE PAIN. WILL MONITOR AND REASSESS PT.
[2023-01-04] MEDS: ENSURE ENLIVE 237 ML LIQUID (VANILLA) PO SCH ×2 (13:31→18:04)
[2023-01-04 16:00] VITALS: BP 154/81
[2023-01-04 17:11] VITALS: BP 154/81
--- NOTE | 2023-01-04 19:48 | NUR ---
MS RN CLOSING NOTE PT AWAKE AND RESTING IN BED. PT IS A/O X2, REORIENTED PT NEEDED. PT IS ON O2 AT 2L/MIN, TOLERATING WELL. NO SOB NOTED. NOT IN ANY SIGN OF RESPIRATORY DISTRESS. IV ACCESS ON LEFT WRIST G#18, INTACT AND PATENT. PT ON S/P RIGHT HIP MISA ARTHROPLASTY, DRESSING C/D/I WITH NOT ACTIVE BLEEDING OR DRAINAGE NOTED. ALL NEEDS ATTENDED. KEPT CLEAN AND COMFORTABLE AT ALL TIMES. SAFETY MEASURES IN PLACE: BED IN LOWEST AND LOCKED POSITION, SIDE RAILS UPX2, BED ALARM ON, AND CALL LIGHT WITHIN REACH. PT WILL BE DISCHARGED TONIGHT TO [facility] AT 1999. PT REFUSED BODY ASSESSMENTS AND PHOTOGRAPHS OF SKIN ISSUES TO BE TAKEN. ALL BELONGINGS ACCOUNTED FOR. DISCHARGED INSTRUCTIONS AND HEALTH TEACHINGS EXPLAINED TO THE PT. PT NEEDED REINFORCEMENT OF INSTRUCTIONS AND HEALTH TEACHINGS UNDERSTANDING. REPORT GIVEN EARLIER TO CURTIS NEVAREZ OF [facility]. ENDORSED TO COOK CASHIER FOOD PREP NURSE FOR RETA.
== END 2023-01-04 20:45 | DRG 521 ==
LOC: ER 07:41 → MED 15:52
PROVIDERS: ADMIT Nurse Practitioner Acute Care; ATTEND Internal Medicine
PROC: 0SRR0JZ Replacement of Right Hip Joint, Femoral Surface with Synthetic Substitute, Open Approach (ICD-10-PCS; principal; 2023-01-02)
DX: S72.031A Displaced midcervical fracture of right femur, initial encounter for closed fracture (principal); N17.0 Acute kidney failure with tubular necrosis; W06.XXXA Fall from bed, initial encounter; Z20.822 Contact with and (suspected) exposure to COVID-19; F03.90 Unspecified dementia, unspecified severity, without behavioral disturbance, psychotic disturbance, mood disturbance, and anxiety; E78.5 Hyperlipidemia, unspecified; I10 Essential (primary) hypertension; J44.9 Chronic obstructive pulmonary disease, unspecified; N40.0 Benign prostatic hyperplasia without lower urinary tract symptoms; Z88.0 Allergy status to penicillin; Z79.51 Long term (current) use of inhaled steroids; Z79.82 Long term (current) use of aspirin; Z79.899 Other long term (current) drug therapy; Z83.3 Family history of diabetes mellitus; Z82.49 Family history of ischemic heart disease and other diseases of the circulatory system; W18.30XA Fall on same level, unspecified, initial encounter; Y92.099 Unspecified place in other non-institutional residence as the place of occurrence of the external cause; S09.90XA Unspecified injury of head, initial encounter
CPT/HCPCS: 36415; 70450-TC; 71045-TC; 72125-TC; 73502; 73560-TC; 73700-TC; 80048-TC; 80053-TC; 80061-TC; 80076-TC; 82962-TC; 83735-TC; 84100-TC; 84484-TC; 85025-TC; 87081-TC; 88305-TC; 88311-TC; 93307-TC; 94799-TC; 97112-TC; 97530-TC; A4217; A4349; A6209; C1776; C9803; G0378; J0690; J1100; J1170; J1650; J2175; J2270; J2370; J2405; J2704; J2765; J3490; J7030; J7040; J7050; J7060